=== PATIENT | male | born 1995 | race Two or more races ===

== ENCOUNTER 2024-06-06 13:18 | Emergency (ER) | payer MEDICAID ==
[2024-06-06] MEDS: EPINEPHRINE 1:1000 1 MG/ML AMP IM ONE (14:06)
[2024-06-06] MEDS: DIPHENHYDRAMINE 50MG/ML VIAL IV ONE (14:07)
[2024-06-06] MEDS: METHYLPREDNISOLONE SOD SUCC 125MG/2ML (ACT-O-VIAL) IV ONE (14:07)
[2024-06-06 15:30] VITALS: BP 118/72; PULSE 93; RESP 16; O2SAT 100
[2024-06-06] MEDS ORDERED: EPIN0.3P3 IM (17:58)
== END 2024-06-06 19:43 | disposition home or self-care (01) ==
LOC: ER 13:18
DX: T78.2XXA Anaphylactic shock, unspecified, initial encounter (principal)
CPT/HCPCS: 96372; 96374; 96375; 99291; J1200; J3490; J2919; Z7610